=== PATIENT | female | born 1995 | race African-American/Black ===

== ENCOUNTER 2025-01-25 08:53 | Emergency (ER) | payer MEDICAID, OTHER ==
[~2025-01-25] VITALS: Ht 167.6 cm; Wt 68.4 kg
[2025-01-25 09:32] VITALS: BP 119/75; PULSE 90; RESP 16; TEMP 98.7; O2SAT 96
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
[2025-01-25 10:46] LABS: Urine Bacteria None Seen /hpf (None Seen)
[2025-01-25 11:13] LABS: Urine Blood Negative /uL (Negative); Urine Clarity Clear (Clear); Urine Color Light-Yellow (Yellow); Urine Protein, UAD Negative (Negative); Urine Squamous Epithelial Cell FEW /hpf (<5); Urine Urobilinogen Normal (Negative); Urine WBC 2 /HPF (0-5)
[2025-01-25] MEDS ORDERED: LIDO5DIS21 TOP (11:31)
[2025-01-25] MEDS ORDERED: METH-1181 PO (11:31)
[2025-01-25] MEDS ORDERED: IBUP1TAB5 PO (11:31)
== END 2025-01-25 11:39 | disposition home or self-care (01) ==
LOC: ER 08:53
DX: R07.89 Other chest pain (principal); M25.561 Pain in right knee; M25.562 Pain in left knee; J45.909 Unspecified asthma, uncomplicated; Z86.711 Personal history of pulmonary embolism; Z88.2 Allergy status to sulfonamides; V89.2XXA Person injured in unspecified motor-vehicle accident, traffic, initial encounter; Y93.89 Activity, other specified; Y92.89 Other specified places as the place of occurrence of the external cause; Y99.8 Other external cause status
CPT/HCPCS: 81001; 81025